=== PATIENT | male | born 1980 | race Hispanic/Latino ===

== ENCOUNTER 2020-01-23 15:39 | Emergency (ER) | payer MEDICARE, OTHER ==
[~2020-01-23] VITALS: Ht 172.7 cm; Wt 93.0 kg
[2020-01-23] MEDS ORDERED: SODIUM CHLORIDE 0.9% 1000ML 1,000 ML IV STA (15:58)
[2020-01-23] MEDS ORDERED: ONDANSETRON HCL INJ 2MG/ML 2ML 2 MG/ML VIAL IV STA (15:58)
[2020-01-23] MEDS ORDERED: LORAZEPAM INJ 2 MG/ML VIAL IV ONE (16:00)
--- OUTSIDE RECORDS SUMMARY | 2020-01-23 16:11 | XMS REPORT | Continuity of Care Document ---
Author Author [facility] t Organization [facility] Address [address] [place] [address] Phone Unavailable Care Team Providers Care Meat Dresser Name Role Phone Rosangela Garcia DO PCP Judy LAMB, Neil Quiñones Attphys Unavailable [place] DERMATOLOGY TECHNICIAN, Lisseth Armstrong Attphys Unavailable Rosangela Garcia DO Attphys Josiah WHITT, Marilee Eckert Attphys Jinny LAMB, Kerry Attphys Unavailable Marta LAMB, Kamran Gold Attphys Unavailcoretta Yee BELT BRANDER, G Tiagoiate Attphys Payers Payer Name Policy Type Policy Number Effective Date Expiration Date [facility] [id number].O. [address] [place] [address] xxxxxxxxx 2017 00:00:00 Win omalley Problems This patient has no known problems. Allergies, Adverse Reactions, Alerts Allergy Name Allergy Type Status Severity Reaction(s) Onset Date Inacti ve Date Treating Clinician Comments Source No Known Allergies DA Active U 2019-08-29 00:00:00 [facility] No Known Allergies DA Active U 2018-01-02 00:00:00 [facility] Family History Family Member Diagnosis Comments Start Date Stop Date Source Natural father Diabetes Win Munoz [facility] Social History Social Habit Start Date Stop Date Quantity Comments Source Sex Assigned At [facility] Exposure to SARS-CoV-2 (event) Yes [facility] Alcohol intake 2019-04-24 00:00:00 2019-04-24 00:00:00 Current non-drinker of alcohol (finding) [facility] History SDOH Food Worry 2018-10-05 00:00:00 2018-10-05 00:00:00 1 [facility] History SDOH Food Scarcity 2018-10-05 00:00:00 2018-10-05 00:00:00 1 [facility] Smoking Status Start Date Stop Date Source Light tobacco smoker 2019-04-24 00:00:00 [facility] Medications Ordered Medication Name Filled Medication Name Start Date Stop Da te Current Medication? Ordering Clinician Indication Dosage Frequency Signature (SIG) Comments Components Source divalproex (DEPAKOTE ER) 500 mg extended release tablet 2019-11-16 00:00:00 Yes Schizoaffective disorder, depressive type 1500mg QD Take 3 tablets by mouth daily. [facility] divalproex (DEPAKOTE ER) 500 mg extended release tablet 2019-08-24 00:00:00 2019-11-16 00:00:00 No Schizoaffective disorder, depressive t ype 1500mg QD Take 3 tablets by mouth daily. [facility] alth diphenhydrAMINE (BENADRYL) 50 mg capsule 2019-08 00:00:00 2019-11-16 00:00:00 No Schizoaffective disorder, depressive type 100mg Take 2 capsules by mouth nightly at bedtime as needed for Sleep. [facility] divalproex (DEPAKOTE ER) 500 mg extended release tablet 2019-06-29 00:00:00 2019-08-24 00:00:00 No Schizoaffective disorder, depressive t ype 1500mg QD Take 3 tablets by mouth daily. [facility] alth diphenhydrAMINE (BENADRYL) 50 mg capsule 2019-06 00:00:00 2019-08-24 00:00:00 No Schizoaffective disorder, depressive type 100mg Take 2 capsules by mouth nightly at bedtime as needed for Sleep. [facility] paliperidone (INVEGA SUSTENNA) 234 mg/1.5 mL Syrg 2019-05-04 00:00:00 2019-06-08 00:00:00 No Schizoaffective disorder, depressive t ype 234mg Inject 1.5 mL intramuscularly every 28 days for 3 doses. [facility] benzonatate (TESSALON PERLES) 100 mg capsule 2019-04-24 00:0 0:00 Yes Acute URI Take 1-2 capsules by mouth every 8 hours as nee ded for cough:. [facility] loratadine (CLARITIN) 10 mg tablet 2019-04-24 00:00:00 Yes Seasonal allergies 10mg QD Take 1 tablet by mouth daily. [facility] fluticasone propionate (FLONASE ALLERGY RELIEF) 50 mcg/actua tion nasal spray 2019-04-24 00:00:00 Yes Seasonal allergies 2{spray} Q D Use 2 Sprays in each nostril daily. [facility] amoxicillin (AMOXIL) 500 mg capsule 2019-04-24 00:00:0 0 2019-05-04 23:59:00 No Acute URI 500mg Q.5D Take 1 capsule by mouth 2 times daily for 10 days. [facility] divalproex (DEPAKOTE ER) 500 mg extended release tablet 2019-04-04 00:00:00 2019-06-29 00:00:00 No Schizoaffective disorder, depressive t ype 1500mg QD Take 3 tablets by mouth daily. [facility] alth diphenhydrAMINE (BENADRYL) 50 mg capsule 2019-03 00:00:00 2019-06-03 23:59:00 No Schizoaffective disorder, depressive type 100mg Take 2 capsules by mouth nightly at bedtime as needed for up to 60 days for Sleep. [facility] divalproex (DEPAKOTE ER) 500 mg extended release tablet 2019-02-07 00:00:00 2019-04-04 00:00:00 No Schizoaffective disorder, depressive t ype 1500mg QD Take 3 tablets by mouth daily. [facility] diphenhydrAMINE (BENADRYL) 50 mg capsule 2019-01 00:00:00 2019-04-04 00:00:00 No Schizoaffective disorder, depressive type 50mg Take 1 capsule by mouth nightly at bedtime as needed for up to 60 days for Sleep. [facility] divalproex (DEPAKOTE ER) 500 mg extended release tablet 2018-12-06 00:00:00 2019-02-07 00:00:00 No Schizoaffective disorder, depressive t ype 1500mg QD Take 3 tablets by mouth daily. [facility] alth diphenhydrAMINE (BENADRYL) 50 mg capsule 2018-11 00:00:00 2019-02-07 00:00:00 No Schizoaffective disorder, depressive type 50mg Take 1 capsule by mouth nightly at bedtime as needed for up to 90 days for Itching or Sleep. [facility] atorvastatin (LIPITOR) 20 mg tablet 2018-10-05 00:00:00 Yes Hypertriglyceridemia 20mg Take 1 tablet by mouth at bedtime nig htly. [facility] Immunizations Ordered Immunization Name Filled Immunization Name Date Status Comments Source Tdap (Tetanus Toxoid, Reduced Diphtheria Toxoid And Acellular Pertussis, Absorbed) 2018-10-05 00:00:00 Completed [facility] Vital Signs Vital Name Observation Time Observation Value Comments Source Systolic blood pressure 2019-11-16 13:32:00 114 mm[Hg] [facility] Diastolic blood pressure 2019-11-16 13:32:00 73 mm[Hg] [facility] Heart rate 2019-11-16 13:32:00 73 /min [facility] Body temperature 2019-11-16 13:32:00 36.61 Mimi [facility] Respiratory rate 2019-11-16 13:32:00 20 /min [facility] Body height 2019-11-16 13:32:00 172.7 cm [facility] Body weight 2019-11-16 13:32:00 85.276 kg [facility] BMI 2019-11-16 13:32:00 28.59 kg/m2 [facility] Oxygen saturation in Arterial blood by Pulse oximetry 11-15 13:32:00 100 /min [facility] Procedures Procedure Date / Time Performed Performing Clinician Sourc e CBC/DIFF 2019-11-16 12:46:00 Babar Rahman COMPREHENSIVE METABOLIC PANEL 2019-11-16 12:46:00 Babar Rahman [facility] HEMOGLOBIN A1C 2019-11-16 12:46:00 Babar Rahman LIPID PROFILE 2019-11-16 12:46:00 Babar Rahman VALPROIC ACID 2019-11-16 12:46:00 Babar Rahman URINE DRUG SCREEN 2019-11-16 12:46:00 Babar Rahman [facility] CBC 2019-11-16 12:46:00 Babar Rahman Plan of Care Planned Activity Planned Date Details Comments Source Future Scheduled Test 2020-03-13 00:00:00 IMM Influenza Seas onal Mar to August (>/= 19 yrs) [code = IMM Influenza Seasonal Mar to August (>/= 19 yrs)] [facility] Encounters Start Date/Time End Date/Time Encounter Type Admission Type [facility] Care Department Encounter ID Source 2019-08-24 00:00:00 2019-08-24 00:00:00 Outpatient [facility] [id number] [facility] 2019-07-27 00:00:00 2019-07-27 00:00:00 Outpatient [facility] [id number] [facility] 2019-06-29 09:44:02 2019-06-29 09:44:02 Outpatient [facility] [id number] [facility] 2019-06-01 14:07:19 2019-06-01 14:07:19 Outpatient [facility] [id number] [facility] 2019-05-04 11:21:27 2019-05-04 11:21:27 Outpatient [facility] [id number] [facility] 2019-04-24 10:08:15 2019-04-24 10:08:15 Outpatient [facility] [id number] [facility] 2019-04-04 15:03:58 2019-04-04 15:03:58 Outpatient [facility] [id number] [facility] 2019-03-07 00:00:00 2019-03-07 00:00:00 Outpatient [facility] [id number] [facility] 2019-02-07 14:47:09 2019-02-07 14:47:09 Outpatient [facility] [id number] [facility] 2019-02-07 00:00:00 2019-02-07 00:00:00 Outpatient [facility] [id number] [facility] 2019-01-10 09:27:33 2019-01-10 09:27:33 Outpatient [facility] [id number] [facility] 2018-12-13 08:26:19 2018-12-13 08:26:19 Outpatient [facility] [id number] [facility] 2018-12-06 08:49:56 2018-12-06 08:49:56 Outpatient [facility] [id number] [facility] 2018-11-15 10:10:39 2018-11-15 10:10:39 Outpatient [facility] [id number] [facility] 2018-11-10 00:00:00 2018-11-10 00:00:00 Outpatient [facility] [id number] [facility] 2018-10-13 08:17:37 2018-10-13 08:17:37 Outpatient [facility] [id number] [facility] 2018-10-05 11:11:38 2018-10-05 11:11:38 Outpatient [facility] [id number] [facility] 2018-10-05 10:00:58 2018-10-05 10:00:58 Outpatient [facility] [id number] [facility] 2018-09-15 09:03:16 2018-09-15 09:03:16 Outpatient [facility] [id number] [facility] 2018-09-06 08:41:20 2018-09-06 08:41:20 Outpatient [facility] [id number] [facility] 2018-08-14 12:36:21 2018-08-14 12:36:21 Outpatient [facility] [id number] [facility] 2018-08-14 00:00:00 2018-08-14 00:00:00 Outpatient [facility] [id number] [facility] 2018-08-09 00:00:00 2018-08-09 00:00:00 Outpatient [facility] [id number] [facility] 2018-07-12 15:10:32 2018-07-12 15:10:32 Outpatient [facility] [id number] [facility] 2018-07-12 12:45:33 2018-07-12 12:45:33 Outpatient [facility] [id number] [facility] Results Test Description Test Time Test Comments Results Result Comments Source Hemoglobin A1C 2019-11-16 15:21:00 Test Item Hemoglobin A1c (test code = 4548-4) 5.9 % 4.3-6.1 Estimated Average Glucose (test code = 49501616) 123 mg/dL 70-11 0 H Lab Interpretation (test code = 74589-7) Abnormal [facility] [id number] 14:20:00* Test Item Value Reference Range Interpretation Comments Cholesterol (test code = 2093-3) 185.0 mg/dL <=200.0 Triglyceride (test code = 85998513) 253 mg/dL <150 H HDL (test code = 2085-9) 31.0 mg/dL See Reference Range Narrative . LDL (test code = 84757-4) 103 mg/dL <100 H Op timal: < 100.0 mg/dLNear Optimal: 120-129 mg/dLBorderline: 130-159 mg/dLHigh: 160-189 mg/dLVery High: >=190 mg/dL Patient Fasting? (test code = 20469130) No DOLORES (test code = DOLORES) Patient is not fasting. For a triglyceride result greater than 440 mg/dL, consider re-testing when the patient is in a fasting state. Lab Interpretation (test code = 41415-2) Abnormal [facility] [id number] 14:20:00* Test Item Value Reference Range Interpretation Comments Valproic Acid (test code = 32905235) 33.0 ug/mL 50-100 L Lab Interpretation (test code = 86902-0) Abnormal [facility] [id number] 14:20:00* Test Item Value Reference Range Interpretation Comments Sodium (test code = 2951-2) 140 mmol/L 136-145 Potassium (test code = 2823-3) 4.4 mmol/L 3.5-5.1 Chloride (test code = 2075-0) 103 mmol/L 98-107 CO2 (test code = 43939251) 27 mmol/L 21-31 Glucose (test code = 42346152) 104 mg/dL 70-110 Calcium (test code = 95532727) 9.4 mg/dL 8.6-10.3 Urea Nitrogen (test code = 26263544) 7.0 mg/dL 7-25 Creatinine (test code = 01638997) 0.7 mg/dL 0.7-1.3 Alkaline Phosphatase (test code = 23317493) 82 U/L 34-104 ALT (test code = 21438754) 11 U/L 7-52 AST (test code = 71331091) 9 U/L 13-39 L Total Protein (test code = 2885-2) 7.3 g/dL 6-8.3 GFR, Estimated (test code = 98331934) >90 >=90 mL/min/1.73 m2 Albumin (test code = 43846-0) 4.4 g/dL 4.2-5.5 Anion Gap (test code = 26520616) 10 mmol/L 5-16 Lab Interpretation (test code = 47815-2) Abnormal [facility] S[facility], [id number] 14:12:00* Test Item Value Reference Range Interpretation Comments Opiate, Ur (test code = 17077-1) Negative Negative Calibrated Standard: Morphine Positive if urine level > or = 300 ng/dL Amphetamine (test code = 72487-6) Negative Negative Calibrated Standard: D- Methamphetamine Positive if urine level > or = 1000 ng/mL Barbiturate (test code = 96204-9) Negative Negative Calibrated Standard: Secobarbital Positive if urine level is > or = 200 ng/mL Benzodiazepine (test code = 34828-3) Negative Negative Calibrated Standard: Lormethazepam Positive if urine level is > or = 200 ng/mL Cocaine (test code = 23786-7) Negative Negative Calibrated Standard: Benzoylecgonine Positive if urine level > or = 300 ng/dL PCP (test code = 45849-5) Negative Negative C alibrated Standard: Phencyclidine Positive if urine level > or = 25 ng/dL Cannabinoid (test code = 68230-5) Positive Negative A Calibrated Standard: 11 nor-delta(9)-THC carboxylic acid Positive if urine level > or = 50 ng/mL Lab Interpretation (test code = 94609-6) Abnormal [facility]/[id number] 13:37:00* Test Item Value Reference Range Interpretation Comments WBC (test code = 6690-2) 8.6 K/uL 4.5-12 RBC (test code = 789-8) 5.02 4.60- 6.20 M/uL Hemoglobin (test code = 718-7) 14.6 g/dL 14-18 Hematocrit (test code = 4544-3) 46.7 % 40-54 MCV (test code = 787-2) 93.0 fL 82-92 H MCH (test code = 785-6) 29.1 pg 27-31 MCHC (test code = 786-4) 31.3 g/dL 32-36 L RDW (test code = 89454-3) 43.8 fL 35.1-43.9 Platelet (test code = 777-3) 253 K/uL 150-400 Mean Platelet Volume (test code = 99782-5) 10.1 fL 9.4-12.4 Percent NRBC (test code = 83544405) 0.0 % Neutrophil (test code = 770-8) 70.1 % 34-67.9 H Lymphs (test code = 736-9) 22.3 % 21.8-50 Monocytes (test code = 5905-5) 6.5 % 5.3-12 Eos (test code = 713-8) 0.4 % 0.8-5 L Basos (test code = 706-2) 0.2 % 0.2-1.2 Immature Granulocytes (test code = 02404515) 0.5 % 0-0.5 Neutrophils (Absolute) (test code = 03635122) 6.00 K/uL 1.78-5.3 6 H Lymphs (Absolute) (test code = 00381527) 1.91 K/uL 1.32-3.57 Monocytes(Absolute) (test code = 34119606) 0.56 K/uL 0.3-0.82 Eos (Absolute) (test code = 90954015) 0.03 K/uL 0.04-0.54 L Baso (Absolute) (test code = 72796738) 0.02 K/uL 0.01-0.08 Immature Grans (Abs) (test code = 77493578) 0.04 K/uL 0-0.03 H Absolute NRBC (test code = 89166589) 0.00 K/uL Lab Interpretation (test code = 86278-8) Abnormal [facility]- CT UP EXTREM W/CONT [id number] 13:04:00 Name: PAMELLA BARNARD [facility] : 1980 Age/S: 39 / M [address] Unit #: [id number] [place] [address] Phys: Mendez Rasheed DO Acct: [id number] Dis Date: Status: REG ER PHONE #: [phone] Exam Date: 08/29/2019 1243 FAX #: [phone] Reason: open wound/infection EXAMS: CPT CODE: [id number] CT UP EXTREM W/[place] [address] REASON FOR EXAM: open wound/infection EXAM ORDER DATE: 08/29/2019 12:14 PM Ordering: Mendez Rasheed DO Attending:Mendez Rasheed DO Location:[facility] PROCEDURE: - CT UP EXTREM W/CONT LT FINDINGS: CT images of the left elbow were obtained with IV contrast at 2.5mm. Reconstructed coronal and sagittal images were also provided. Dose modu lation, iterative reconstruction, and/or weight based adjustment of the MA /KV was utilized to reduce the radiation dose to as low as reasonably achi evable. The osseous structures are intact. Diffuse subcutaneous e cash in the posterior compartment of the left elbow consistent with cellul itis. No focal abscess or fluid collection. No abnormal enhancement. The osseous structures are intact. No evidence of joint effusion IMPRESSION: Subcutaneous cellulitis/edema most pronounced in the poste rior compartment. No evidence of osteomyelitis or abscess Electronic ally Signed by Migue Everett on 08/29/2019 at 4174 Report ed and signed by: Fabrice Everett M.D. CC: Mendez Rasheed DO Technologist:Rhys Vallejo RT(R),(MR),(CT) CTDI: DLP: Trnscb Date/Time: 08/29/2019 (6053) Zack.[email or web address] Orig Print D/T: S: 08/29/2019 (3043) PAGE 1 Signed Report - XR ELBOW 3 + V [id number] 09:46:00 FAX: Mendez Rasheed DO [place]: B St: REG Name: PAMELLA RUTH [facility] : [birth year] Age/S: 39/M [address] [facility] Unit #: [id number] Loc: [place] [address] Phys: Mendez Rasheed DO Acct: [id number] Dis Date: Status: REG ER PHONE #: [phone] Exam Date: 08/29/2019 09 FAX #: [phone] Reason: ELBOW PAIN EXAMS: CPT CODE: [id number] XR ELBOW 3 + [place] [address] REASON FOR EXAM: ELBOW PAIN EXAM ORDER DATE: 08/29/2019 8:47 AM Ordering: Mendez Rasheed DO Attending:Mendez Rasheed DO Location:[facility] PROCEDURE: - XR ELBOW 3 + V LT FINDINGS: 2 views of the left elbow were obtained. The osseous structures are unremarkable in size and shape. The joint spaces are maintained. No evidence of fracture. No evidence of joint effusion IMPRESSION: Unremarkable left el bow at 0946 Reported and signed by: Migue Joyner C: Mendez Rasheed DO Technologist: RT WILFREDO(R) Trnscrd Date/Time/By: 08/29/2019 (67) : By: GayL Orig Print D/T: S: 08/29/2019 (4380) PAGE 1 Signed Report - XR ELBOW 3 + V [id number] 09:46:00 FAX: Mendez Rasheed DO Munith: B St: REG Name: PAMELLA RUTH [facility] : [birth year] Age/S: 39/M [address] [facility] Unit #: [id number] Loc: [place] [address] Phys: Mendez Rasheed DO Acct: [id number] Dis Date: Status: REG ER PHONE #: [phone] Exam Date: 08/29/2019937 FAX #: [phone] Reason: ELBOW PAIN EXAMS: CPT CODE: [id number] XR ELBOW 3 + [place] [address] REASON FOR EXAM: ELBOW PAIN EXAM ORDER DATE: 08/29/2019 8:47 AM Ordering: Mendez Rasheed DO Attending:Mendez Rasheed DO Location:[facility] PROCEDURE: - XR ELBOW 3 + V LT FINDINGS: 2 views of the left elbow were obtained. The osseous structures are unremarkable in size and shape. The joint spaces are maintained. No evidence of fracture. No evidence of joint effusion IMPRESSION: Unremarkable left el bow at 0946 Reported and signed by: Migue Joyner C: Mendez Rasheed DO Technologist: RT WILFREDO(Lamberto) Trnscrd Date/Time/By: 08/29/2019 (15) : By: GayL Orig Print D/T: S: 08/29/2019 (3344) PAGE 1 Signed Report - XR CHEST 1 [id number] 09:37:00 FAX: Mendez Rasheed DO Munith: B St: REG Name: PAMELLA RUTH [facility] : [birth year] Age/S: 39/M [address] [facility] Unit #: [id number] Loc: [place] [address] Phys: Mendez Rasheed DO Acct: [id number] Dis Date: Status: REG ER PHONE #: [phone] Exam Date: 08/29/2019937 FAX #: [phone] Reason: CHEST PAIN EXAMS: CPT CODE: [id number] XR CHEST 1 V 91813 REASON FOR EXAM: CHEST PAIN EXAM ORDER DATE: 08/29/2019 8:47 AM Ordering: Mendez Rasheed DO Attending:Mendez Rasheed DO Location:[facility] OCEDURE: - XR CHEST 1 V COMPARISON: FINDINGS: Port able AP frontal view of the chest obtained at 9:22 AM shows clear lungs wi thout evidence of consolidation. There is no evidence of effusion. The hea rt size is within normal limits. Pulmonary vasculatures are unremarkable. IMPRESSION: No active disease. at 0937 Reported and sig joelle by: Fabrice Everett M.D. CC: Mendez Rasheed DO Technologist: BETI BARRERA, RT(R) Trnscrd Date/Time/By: 08/29/2019 (09) : By: GayL Orig Print D/T: S: 08/29/2019 (7872) PAGE 1 Signed Report LACTIC [id number] 09:26:00 * Test Item Value Reference Range Interpretation Comments LACTIC ACID (test code = LACT) 1.6 mmol/L 0.4-1.9 N BASIC METABOLIC [id number] 09:26:00* Test Item Value Reference Range Interpretation Comments SODIUM (test code = NA) 140 mmol/L 136-145 N POTASSIUM (test code = K) 3.7 mmol/L 3.5-5.1 N CHLORIDE (test code = CL) 106.0 mmol/L 98-107 N CARBON DIOXIDE (test code = CO2) 26.0 mmol/L 21-32 N ANION GAP (test code = GAP) 11.7 10-20 N GLUCOSE (test code = GLU) 108 mg/dL 74-106 H BLOOD UREA NITROGEN (test code = BUN) 9 mg/dL 7-18 N GLOMERULAR FILTRATION RATE (test code = GFR) > 60 mL/min >=60 Estimated GFR by using Modified MDRD formula.Chronic kidney disease is defined as either kidney damageor GFR <60 mL/min/1.73 m2 for >3 months. CREATININE (test code = CREAT) 0.80 mg/dL 0.7-1.3 N BUN/CREATININE RATIO (test code = BUN/CREA) 11.3 10-20 N CALCIUM (test code = CA) 8.5 mg/dL 8.5-10.1 N HEPATIC FUNCTION [id number] 09:26:00* Test Item Value Reference Range Interpretation Comments TOTAL PROTEIN (test code = PROT) 7.7 gram/dL 6.4-8.2 N ALBUMIN (test code = ALB) 3.2 g/dL 3.4-5.0 L GLOBULIN (test code = GLOB) 4.5 gram/dL 2.7-4.2 H ALBUMIN/GLOBULIN RATIO (test code = A/G) 0.7 0.75-1.50 L BILIRUBIN TOTAL (test code = BILT) 0.30 mg/dL 0.0-1.0 N BILIRUBIN DIRECT (test code = BILD) 0.07 mg/dL 0.0-0.20 N SGOT/AST (test code = AST) 9 IUnit/L 15-37 L SGPT/ALT (test code = ALT) 21 IUnit/L 12-78 N ALKALINE PHOSPHATASE TOTAL (test code = ALKP) 116 IUnit/L 45-117 N Note change in reference range due to change in reagent. [id number] 09:26:00* Test Item Value Reference Range Interpretation Comments TROPONIN-I (test code = TROPI) <0.015 ng/mL 0-0.045 N [id number] 09:26:00* Test Item Value Reference Range Interpretation Comments ALCOHOL (test code = ALC) < 3 mg/dL 0.0-3.0 N -- INTERPRETIVE DATA NOTE: POSITIVE SCREENING RESULTS SHOULD BE CONSIDERED PRESUMPTIVE.WHEN COLLECTED FOR MEDICAL PURPOSES ONLY. SPECIMEN WILL NOTBE COLLECTED BY CHAIN OF CUSTODY.IF A CONFIRMATION OF POSITIVE RESULTS IS DESIRED, ACONFIRMATION TEST MUST BE REQUESTED BY THE PHYSICIAN AT ANADDITIONAL CHARGE TO THE PATIENT. - CT MAXIFAC W/O [id number] 09:25:00 Name: SHANNON DAILEYPAMELLA [facility] : 1980 Age/S: 39 / M [address] Unit #: [id number] Loc: [place] [address] Phys: Mendez Rasheed DO Acct: [id number] Dis Date: Status: REG ER PHONE #: [phone] Exam Date: 08/29/2019903 FAX #: [phone] Reason: blunt trauma EXAMS: CPT CODE: [id number] [place] MAXIFAC [place] [address] REASON FOR EXAM: blunt trauma EXAM ORDER DATE: 08/29/2019 8:47 AM Ordering: Mendez Rasheed DO Attending:Mendez Rasheed DO Location:[facility] PROCEDURE: - CT MAXIFAC W/O CNT FINDINGS: CT images of the face were obtained without IV contrast at 2.5 mm thickness. Dose modulation, iterative reconstruction, and/or weight based adjustment of the MA/KV was utilized to reduce the radiation dose to as low as reasonably achievable. The globes are intact. The orbital jernigan are unremarkable without evidence of orbital blowout fracture. The mandibles are within normal limits. The visualized paranasal sinuses are well aerated IMPRESSION: Minimally displaced nasal bone fracture at 0925 Reported and signed by: Fabrice Everett M.D. CC: Mendez Rasheed DO Technologist:Rhys Vallejo RT(R),(MR),(CT); CTDI: DLP: Trnscb Date/Time: 08/29/2019 (924) [email or web address] Orig Print D/T: S: 08/29/2019 (36) PAGE 1 Signed Report - CT ABD PELVIS [id number] 09:24:00 Name: PAMELLA BARNARD [facility] : 1980 Age/S: 39 / M [address] [facility] Unit #: [id number] [place] [address] Phys: Mendez Rasheed DO Acct: [id number] Dis Date: Status: REG ER PHONE #: [phone] Exam Date: 08/29/2019903 FAX #: [phone] Reason: trauma left flank pain EXAMS: CPT CODE: [id number] CT ABD PELVIS W/CONT 48695 REASON FOR EXAM: trauma left flank pain EXAM ORDER DATE: 08/29/2019 8:47 AM Ordering: Mendez Rasheed DO Attending:Mendez Rasheed DO Location:[facility] PROCEDURE: - CT ABD PELVIS W/CONT COMPARISON: FINDINGS: CT images of the abdomen and pelvis were obtained with IV and without oral contrast at 5mm. Dose modulation, iterative james nstruction, and/or weight based adjustment of the MA/KV was utilized to re duce the radiation dose as low as reasonably achievable. Intraveno us contrast: 100cc of Omnipaque 370. The liver, spleen, pancreas are grossly within normal limits. The gallbladder is unremarkable by CT The kidneys are within normal limits. The urinary bladder is unremarkable. The colon, small bowel, and stomach are within no rmal limits without evidence of obstruction. The appendix is unremarkable . No evidence of free air or free fluid. IMPRESSIO N: No acute findings in the abdomen at 0924 Reported and signed by: Fabrice Everett M.D. CC: Mendez Rasheed DO Tech nologist:Rhys Vallejo RT(R),(MR),(CT); CTDI: DLP: Trnscb Date/Ti me: 08/29/2019 (923) [email or web address].SDR.VTL Orig Print D/T: S: 2019 (4897) PAGE 1 Signed Report - CT C-SPINE W/O [id number] 09:22:00 Name: PAMELLA BARNARD [facility] : 1980 Age/S: 39 / M [address] [facility] Unit #: [id number] Loc: [place] [address] Phys: Mendez Rasheed DO Acct: [id number] Dis Date: Status: REG ER PHONE #: [phone] Exam Date: 08/29/2019 0904 FAX #: [phone] Reason: trauma EXAMS: CPT CODE: [id number] CT C-SPINE W/O CONTRAST [id number] REASON FOR EXAM: trauma EXAM ORDER DATE: 08/29/2019 8:47 AM Ordering: Mendez Rasheed DO Attending:Mendez Rasheed DO Location:[facility] PROCEDURE: - CT C-SPINE W/O CONTRAST FINDINGS: CT images of the cervical spine were obtained without IV contrast at 2.5mm. Recon structed coronal and sagittal images were also provided. Dose modulation, iterative reconstruction, and/or weight based adjustment of the MA/KV was utilized to reduce the radiation dose to as low as reasonably achievable. The osseous structures are intact. The central canal is patent. The disc spaces are maintained. IMPR ESSION: Unremarkable cervical spine at 0922 Reported and signed by: Fabrice Everett M.D. CC: Mendez Rasheed DO Technologist:Rhys Vallejo RT(R),(MR),(CT); CTDI: DLP: Trnscb Date/Time: 08/29/2019 (921) [email or web address] Orig Print D/T: S: 08/29/2019 (924) PAGE 1 Signed Report BASIC METABOLIC [id number] 09:17:00* Test Item Value Reference Range Interpretation Comments SODIUM (test code = NA) 140 mmol/L 136-145 N POTASSIUM (test code = K) 3.7 mmol/L 3.5-5.1 N CHLORIDE (test code = CL) 106.0 mmol/L 98-107 N CARBON DIOXIDE (test code = CO2) mmol/L 21-32 ANION GAP (test code = GAP) 10-20 GLUCOSE (test code = GLU) mg/dL 74-106 BLOOD UREA NITROGEN (test code = BUN) mg/dL 7-18 GLOMERULAR FILTRATION RATE (test code = GFR) mL/min >=60 CREATININE (test code = CREAT) mg/dL 0.7-1.3 BUN/CREATININE RATIO (test code = BUN/CREA) 10-20 CALCIUM (test code = CA) mg/dL 8.5-10.1 HEPATIC FUNCTION [id number] 09:17:00* Test Item Value Reference Range Interpretation Comments TOTAL PROTEIN (test code = PROT) gram/dL 6.4-8.2 ALBUMIN (test code = ALB) g/dL 3.4-5.0 GLOBULIN (test code = GLOB) gram/dL 2.7-4.2 ALBUMIN/GLOBULIN RATIO (test code = A/G) 0.75-1.50 BILIRUBIN TOTAL (test code = BILT) mg/dL 0.0-1.0 BILIRUBIN DIRECT (test code = BILD) mg/dL 0.0-0.20 SGOT/AST (test code = AST) IUnit/L 15-37 SGPT/ALT (test code = ALT) IUnit/L 12-78 ALKALINE PHOSPHATASE TOTAL (test code = ALKP) IUnit/L 45-117 [id number] 09:17:00* Test Item Value Reference Range Interpretation Comments TROPONIN-I (test code = TROPI) ng/mL 0-0.045 [id number] 09:17:00* Test Item Value Reference Range Interpretation Comments ALCOHOL (test code = ALC) mg/dL 0-3 - CT HEAD/BRAIN W/O [id number] 09:14:00 Name: PAMELLA BARNARD [facility] : 1980 Age/S: 39 / M [address] Unit #: [id number] Loc: [place] [address] Phys: Mendez Rasheed DO Acct: [id number] Dis Date: Status: REG ER PHONE #: [phone] Exam Date: 08/29/2019 0904 FAX #: [phone] Reason: HEADACHE EXAMS: CPT CODE: [id number] CT HEAD/BRAIN W/O CONT [id number] REASON FOR EXAM: HEADACHE EXAM ORDER DATE: 08/29/2019 8:47 AM Ordering: Mendez Rasheed DO Attending:Mendez Rasheed DO Location:[facility] PROCEDURE: - CT HEAD/BRAIN W/O CONT COMPARISON: FINDINGS: CT images of the brain were obtained without IV contrast. Dose modulation, iterative reconstruction, and/or weight based adjustment of the MA/KV was utilized to reduce the radiation dose to as low as reasonably achievable. The brain parenchyma is within normal limits. The morris-white matter delineation is unremarkable. The ventricles, cisterns, and sulci are unremarkable. There is no evidence of hemorrhage, mass, mass effect. There is no evidence of acute or old infarct. The calvarium is intact. IMPRESSION: Unremarkable brain. Minimal deformity of the nasal bone suggestive of fracture. at 0914 Reported and signed by: Fabrice Everett M.D. CC: Mendez Rasheed DO Technologist:Rhys Vallejo RT(R),(MR),(CT); CTDI: DLP: Trnscb Date/Time: 08/29/2019 (913) [email or web address] Orig Print D/T: S: 08/29/2019 (4755) PAGE 1 Signed Report CBC W/O [id number] 09:10:00* Test Item Value Reference Range Interpretation Comments WHITE BLOOD CELL (test code = WBC) 12.6 K/mm3 4.5-12.5 H RED BLOOD CELL (test code = RBC) 4.78 mill/mm3 4.0-5.8 N HEMOGLOBIN (test code = HGB) 14.1 gram/dL 13.0-17.5 N HEMATOCRIT (test code = HCT) 41.8 % 42.0-52.0 L MEAN CELL VOLUME (test code = MCV) 87.4 fL 80-98 N MEAN CELL HGB (test code = MCH) 29.5 picogram 27.0-33.0 N MEAN CELL HGB CONCETRATION (test code = MCHC) 33.7 gram/dL 33.0-36. 0 N RED CELL DISTRIBUTION WIDTH (test code = RDW) 12.6 % 11.6-16. 2 N PLATELET COUNT (test code = PLT) 214 K/mm3 150-450 N MEAN PLATELET VOLUME (test code = MPV) 10.4 fL 6.7-11.0 N CBC W/O [id number] 09:09:00* Test Item Value Reference Range Interpretation Comments WHITE BLOOD CELL (test code = WBC) K/mm3 4.5-12.5 RED BLOOD CELL (test code = RBC) mill/mm3 4.0-5.8 HEMOGLOBIN (test code = HGB) 14.1 gram/dL 13.0-17.5 N HEMATOCRIT (test code = HCT) % 42.0-52.0 MEAN CELL VOLUME (test code = MCV) fL 80-98 MEAN CELL HGB (test code = MCH) picogram 27.0-33.0 MEAN CELL HGB CONCETRATION (test code = MCHC) gram/dL 33.0-36. 0 RED CELL DISTRIBUTION WIDTH (test code = RDW) % 11.6-16. 2 PLATELET COUNT (test code = PLT) K/mm3 150-450 MEAN PLATELET VOLUME (test code = MPV) fL 6.7-11.0
--- OUTSIDE RECORDS SUMMARY | 2020-01-23 16:11 | XMS REPORT | Clinical Summary ---
Author Author [facility] Organization [facility] Address Unknown Phone Unavailable Care Team Providers Care Licensing Engineer Name Role Phone Rosangela Garcia PCP Allergies No Known Allergies Medications End Date Status Medication Sig Dispensed Refills Start Date Active atorvastatin (LIPITOR) 20 Take 1 tablet 90 tablet 1 10/05/201 mg tabletIndications: by mouth at 9 Hypertriglyceridemia bedtime nightly. Active benzonatate (TESSALON Take 1-2 60 capsule 0 04/13 PERLES) 100 mg capsules by 9 capsuleIndications: Acute mouth every 8 URI hours as needed for cough:. Active loratadine (CLARITIN) 10 Take 1 tablet 30 tablet 0 201 mg tabletIndications: by mouth 9 Acute URI, Nasal daily. congestion with rhinorrhea, Seasonal allergies Active fluticasone propionate Use 2 Sprays 16 g 0 (FLONASE ALLERGY RELIEF) in each 9 50 mcg/actuation nasal nostril sprayIndications: Acute daily. URI, Nasal congestion with rhinorrhea, Seasonal allergies Active divalproex (DEPAKOTE ER) Take 3 90 tablet 2 0 500 mg extended release tablets by 0 tabletIndications: mouth daily. Schizoaffective disorder, depressive type 02/07/2019 Discontinued (Reorder) divalproex (DEPAKOTE ER) Take 3 90 tablet 3 0 500 mg extended release tablets by 9 tabletIndications: mouth daily. Schizoaffective disorder, depressive type 02/07/2019 Discontinued (Reorder) diphenhydrAMINE Take 1 30 capsule 3 (BENADRYL) 50 mg capsule by 9 capsuleIndications: mouth nightly Schizoaffective disorder, at bedtime as depressive type needed for up to 90 days for Itching or Sleep. 04/04/2019 Discontinued (Reorder) divalproex (DEPAKOTE ER) Take 3 90 tablet 1 0 500 mg extended release tablets by 9 tabletIndications: mouth daily. Schizoaffective disorder, depressive type 04/04/2019 Discontinued (Reorder) diphenhydrAMINE Take 1 30 capsule 1 (BENADRYL) 50 mg capsule by 9 capsuleIndications: mouth nightly Schizoaffective disorder, at bedtime as depressive type needed for up to 60 days for Sleep. 06/29/2019 Discontinued (Reorder) divalproex (DEPAKOTE ER) Take 3 90 tablet 1 1 500 mg extended release tablets by 9 tabletIndications: mouth daily. Schizoaffective disorder, depressive type 06/03/2019 diphenhydrAMINE Take 2 60 capsule 1 (BENADRYL) 50 mg capsules by 9 capsuleIndications: mouth nightly Schizoaffective disorder, at bedtime as depressive type needed for up to 60 days for Sleep. 05/04/2019 amoxicillin (AMOXIL) 500 Take 1 20 capsule 0 1 mg capsuleIndications: capsule by 9 Acute URI mouth 2 times daily for 10 days. 06/08/2019 Discontinued (Other) paliperidone (INVEGA Inject 1.5 mL 1.5 mL 0 SUSTENNA) 234 mg/1.5 mL intramuscular 9 SyrgIndications: ly every 28 Schizoaffective disorder, days for 3 depressive type doses. 08/24/2019 Discontinued (Reorder) divalproex (DEPAKOTE ER) Take 3 90 tablet 1 0 500 mg extended release tablets by 0 tabletIndications: mouth daily. Schizoaffective disorder, depressive type 08/24/2019 Discontinued (Reorder) diphenhydrAMINE Take 2 60 capsule 0 (BENADRYL) 50 mg capsules by 0 capsuleIndications: mouth nightly Schizoaffective disorder, at bedtime as depressive type needed for Sleep. 11/16/2019 Discontinued (Reorder) divalproex (DEPAKOTE ER) Take 3 90 tablet 2 0 500 mg extended release tablets by 0 tabletIndications: mouth daily. Schizoaffective disorder, depressive type 11/16/2019 Discontinued (Other) diphenhydrAMINE Take 2 60 capsule 2 (BENADRYL) 50 mg capsules by 0 capsuleIndications: mouth nightly Schizoaffective disorder, at bedtime as depressive type needed for Sleep. Active Problems No known active problems Encounters Care Team Description Date Type Specialty Nuria Kim RN Psychiatric problem (Primary Dx) 01/11/2020 Nurse Only Psychiatry Patti Okeefe LVN Psychiatric problem (Primary Dx) 12/12/2019 Nurse Only Psychiatry Babar Rahman MD Cannabis abuse (Primary Dx); Schizoaffective disorder, depressive type; Alcohol abuse; Methamphetamine abuse 11/16/2019 Office Visit Psychiatry Rosangela Garcia DO Schizoaffective disorder, depressive typ e 11/16/2019 Hospital Lab Encounter Nuria Kim RN Psychiatric problem (Primary Dx) 10/19/2019 Nurse Only Psychiatry Patti Okeefe LVN Psychiatric problem (Primary Dx) 09/21/2019 Nurse Only Psychiatry Babar Rahman MD Schizoaffective disorder, depressive typ e 08/24/2019 Office Visit Psychiatry Kerry Stearns RN Psychiatric complaint (Primary Dx) 07/27/2019 Nurse Only Psychiatry Babar Rahman MD Schizoaffective disorder, depressive typ e (Primary Dx); Cannabis abuse 06/29/2019 Office Visit Psychiatry Patti Okeefe LVN Schizoaffective disorder, depressive typ e 06/01/2019 Nurse Only Psychiatry Babar Rahman MD Schizoaffective disorder, depressive typ e 05/24/2019 Refill Psychiatry Babar Rahman MD Schizoaffective disorder, depressive typ e 05/18/2019 Refill Psychiatry Alla Lozano RN Psychiatric problem (Primary Dx) 05/04/2019 Nurse Only Psychiatry Babar Rahman MD Schizoaffective disorder, depressive typ e (Primary Dx) 05/04/2019 Refill Psychiatry Astrid Yee, JILL Acute URI (Primary Dx); Nasal congestion with rhinorrhea; Seasonal allergies 04/24/2019 Same Day Family [facility] Rahman, Babar A, MD Schizoaffective disorder, depressive typ e 04/04/2019 Office Visit Psychiatry Babar Rahman MD Schizoaffective disorder, depressive typ e 02/07/2019 Office Visit Psychiatry after 01/22/2019 Immunizations Name Administration Dates Next Due Tdap (Tetanus Toxoid, 10/05/2018 Reduced Diphtheria Toxoid And Acellular Pertussis, Absorbed) Family History Medical History Relation Name Comments Diabetes Father Relation Name Status Comments Father Social History Date Tobacco Use Types Packs/Day Years Used Light Tobacco Smoker Smokeless Tobacco: Never Used Drinks/Week oz/Week Comments Alcohol Use No Food Insecurity Answer Date Recorded Within the past 12 months, you worried that your Never kylie e 10/05/2018 food would run out before you got money to buy more. Within the past 12 months, the food you bought Never true 10/05/2018 just didn't last and you didn't have mo shannon to get more. Sex Assigned at Date Recorded Not on file Industry Job Start Date Occupation Not on file Not on file Not on file Travel End Travel History Travel Start No recent travel history available. Date Recorded COVID-19 Exposure Response 01/17/2020 8:51 AM CDT In the last month, have you been in contact with Yes someone who was confirmed or suspected to have Coronavirus / COVID-19? Last Filed Vital Signs Reading Time Taken Comments Vital Sign 114/73 11/16/2019 1:32 PM CDT Blood Pressure 73 11/16/2019 1:32 PM CDT Pulse 36.6 C (97.9 F) 11/16/2019 1:32 PM CDT Temperature 20 11/16/2019 1:32 PM CDT Respiratory Rate 100% 11/16/2019 1:32 PM CDT Oxygen Saturation - - Inhaled Oxygen Concentration 85.3 kg (188 lb) 11/16/2019 1:32 PM CDT Weight 172.7 cm (5' 8") 11/16/2019 1:32 PM CDT Height 28.59 11/16/2019 1:32 PM CDT Body Mass Index Plan of Treatment Care Team Description Date Type Specialty Rosangela Garcia DO [address] [facility] [place] [address] [phone] 1st call 01/22#[id number] 01/28/2020 Telemedicine Family Practice Babar Rahman MD [address] [place], [place] [id number] injection 02/08/2020 Office Visit Psychiatry Health Maintenance Due Date Last Done Comments IMM Influenza Seasonal 03/13/2020 Oct to August (>/= 19 yrs) Procedures Comments Procedure Name Priority Date/Time Associated Diag nosis CBC Routine 11/16/2019 Schizoaffective disorder, 12:46 PM CDT depressive type URINE DRUG SCREEN Routine 11/16/2019 Schizoaffect ness disorder, 12:46 PM CDT depressive type VALPROIC ACID Routine 11/16/2019 Schizoaffective disorder, 12:46 PM CDT depressive type LIPID PROFILE Routine 11/16/2019 Schizoaffective disorder, 12:46 PM CDT depressive type HEMOGLOBIN A1C Routine 11/16/2019 Schizoaffective disorder, 12:46 PM CDT depressive type COMPREHENSIVE METABOLIC Routine 11/16/2019 Schizo affective disorder, PANEL 12:46 PM CDT depressive type CBC/DIFF Routine 11/16/2019 Schizoaffective disorder, 12:46 PM CDT depressive type after 01/22/2019 Results * CBC/Diff (11/16/2019 12:46 PM CDT) WBC 8.6 4.5 - 12.0 K/uL [facility] RBC 5.02 4.60 - 6.20 M/uL [facility] Hemoglobin 14.6 14.0 - 18.0 g/dL [facility] Hematocrit 46.7 40.0 - 54.0 % [facility] MCV 93.0 (H) 82.0 - 92.0 fL [facility] MCH 29.1 27.0 - 31.0 pg [facility] MCHC 31.3 (L) 32.0 - 36.0 g/dL [facility] RDW 43.8 35.1 - 43.9 fL [facility] Platelet 253 150 - 400 K/uL [facility] Mean Platelet 10.1 9.4 - 12.4 fL [facility] Volume [facility] Percent NRBC 0.0 % [facility] Neutrophil 70.1 (H) 34.0 - 67.9 % [facility] Lymphs 22.3 21.8 - 50.0 % [facility] Monocytes 6.5 5.3 - 12.0 % [facility] Eos 0.4 (L) 0.8 - 5.0 % [facility] Basos 0.2 0.2 - 1.2 % [facility] Immature 0.5 0.0 - 0.5 % [facility] Granulocytes [facility] Neutrophils 6.00 (H) 1.78 - 5.36 K/uL [facility] (Absolute) [facility] Lymphs 1.91 1.32 - 3.57 K/uL [facility] (Absolute) [facility] Monocytes(Absol 0.56 0.30 - 0.82 K/uL [facility] thang) LABORATORY Eos (Absolute) 0.03 (L) 0.04 - 0.54 K/uL [facility] Baso (Absolute) 0.02 0.01 - 0.08 K/uL [facility] Immature Grans 0.04 (H) 0.00 - 0.03 K/uL [facility] (Abs) [facility] Absolute NRBC 0.00 K/uL [facility] Specimen Blood Performing Organization Address [facility] Ph one Number [facility] [address] [place] [address] * Hemoglobin A1C (11/16/2019 12:46 PM CDT) Hemoglobin A1c 5.9 4.3 - 6.1 % [facility] Estimated 123 (H) 70 - 110 mg/dL [facility] Average Glucose [facility] Specimen Blood Performing Organization Address [facility] Ph one Number [facility] [address] [place] [address] * Comprehensive Metabolic Panel (11/16/2019 12:46 PM CDT) Sodium 140 136 - 145 mmol/L [facility] Potassium 4.4 3.5 - 5.1 mmol/L [facility] Chloride 103 98 - 107 mmol/L [facility] CO2 27 21 - 31 mmol/L [facility] Glucose 104 70 - 110 mg/dL [facility] Calcium 9.4 8.6 - 10.3 mg/dL [facility] Urea Nitrogen 7.0 7.0 - 25.0 mg/dL [facility] Creatinine 0.7 0.7 - 1.3 mg/dL [facility] Alkaline 82 34 - 104 U/L [facility] Phosphatase [facility] ALT 11 7 - 52 U/L [facility] AST 9 (L) 13 - 39 U/L [facility] Bilirubin, 0.3 0.2 - 1.2 mg/dL [facility] Total [facility] Total Protein 7.3 6.0 - 8.3 g/dL [facility] GFR, Estimated >90 >=90 mL/min/1.73 m2 [facility] Albumin 4.4 4.2 - 5.5 g/dL [facility] Anion Gap 10 5 - 16 mmol/L [facility] Specimen Blood Performing Organization Address [facility] Ph one Number [facility] [address] [place] [address] [phone] * Valproic Acid (11/16/2019 12:46 PM CDT) Valproic Acid 33.0 (L) 50.0 - 100.0 ug/mL [facility] Specimen Blood Performing Organization Address [facility] Ph one Number [facility] [address] [place] [address] [phone] * DRUG SCREEN, URINE (11/16/2019 12:46 PM CDT) Opiate, Ur Negative Negative [facility] Comment: [facility] Calibrated Standard: Morphine Positive if urine level > or = 300 ng/dL Amphetamine Negative Negative [facility] Comment: [facility] Calibrated Standard: D-Methamphetamine Positive if urine level > or = 1000 ng/mL Barbiturate Negative Negative [facility] Comment: [facility] Calibrated Standard: Secobarbital Positive if urine level is > or = 200 ng/mL Benzodiazepine Negative Negative [facility] Comment: [facility] Calibrated Standard: Lormethazepam Positive if urine level is > or = 200 ng/mL Cocaine Negative Negative [facility] Comment: [facility] Calibrated Standard: Benzoylecgonine Positive if urine level > or = 300 ng/dL PCP Negative Negative [facility] Comment: [facility] Calibrated Standard: Phencyclidine Positive if urine level > or = 25 ng/dL Cannabinoid Positive (A) Negative [facility] Comment: [facility] Calibrated Standard: 11 nor-delta(9)-THC carboxylic acid Positive if urine level > or = 50 ng/mL Specimen Urine - Voided, urine Performing Organization Address [facility] Ph one Number [facility] [address] [place] [address] * Lipid Profile (11/16/2019 12:46 PM CDT) Cholesterol 185.0 <=200.0 mg/dL [facility] Triglyceride 253 (H) <150 mg/dL [facility] HDL 31.0 See Reference Range [facility] Narrative. mg/dL LAB[facility]ATORY LDL 103 (H) <100 mg/dL [facility] Comment: [facility] Optimal: < 100.0 mg/dL Near Optimal: 120-129 mg/dL Borderline: 130-159 mg/dL High: 160-189 mg/dL Very High: >=190 mg/dL Patient No [facility] Fasting? LABORAT[facility] Specimen Blood Narrative Performed At Patient is not fasting. For a triglyceride result gre ater than 440 mg/dL, [facility] consider re-testing when the patient is in a fasting state. Performing Organization Address [facility] one Number [facility] [address] [place] [address] after 01/22/2019 Insurance Type Payer Benefit Subscriber ID Effective Phone Address Plan / Dates Group [facility] xxxxxxxxx 2017-P [phone] [address] [facility] resent [id number] [facility] [id number]
--- NOTE | 2020-01-23 16:20 | Emergency Department Note ---
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 Arrival Mode: [facility] Treatment FLEET ADMINISTRATOR: IV Additional Treatment FLEET ADMINISTRATOR: SEE EMS REPORT [facility] Hand Required: No Onset (how long ago): minute(s) Radiation: Reports non-radiation Severity: mild Onset quality: gradual Timing of current episode: intermittent Progression: waxing and waning Chronicity: recurrent Context: Denies recent illness Relieving factors: none Exacerbating factors: none Associated symptoms: Reports denies other symptoms Treatments prior to arrival: none Past Medical/Family History Physician Review I have reviewed the patient's past medical and family history. Any updates have been documented here. Past Medical History Recent Fever: No Clinical Suspicion of Infectio: No New/Unexplained Change in Ment: No Past Medical History: Anxiety, Depression Social History Smoking Cessation: Current every day smoker Counseling Performed: Yes Alcohol Use: Social Any Illegal Drug Use: Yes TB Exposure/Symptoms: No Physically hurt or threatened: No Family History Family history of heart diseas: No Other Any Pre-Existing Lines (PICC,: No Review of Systems Review of Systems Constitutional: Reports no symptoms EENTM: Reports no symptoms Cardiovascular: Reports no symptoms Respiratory: Reports no symptoms Gastrointestinal: Reports no symptoms Genitourinary: Reports no symptoms Musculoskeletal: Reports no symptoms Integumentary: Reports no symptoms Neurological: Reports as per HPI Psychological: Reports no symptoms, Reports other (no SI/HI) Endocrine: Reports no symptoms Hematological/Lymphatic: Reports no symptoms Physical Exam Related Data Triage Vital Signs Vital Signs Date Time Temp Pulse Resp B/P (MAP) Pulse Ox O2 Delivery O2 Flow Rate FiO2 01/23/20 15:48 98.9 87 19 103/64 98 Room Air Vital signs reviewed: Yes Physical Exam CONSTITUTIONAL Constitutional: Present well-developed, Present well-nourished HENT HENT: Present normocephalic, Present atraumatic, Present oropharynx clear/moist, Present nose normal HENT L/R: Present left ext ear normal, Present right ext ear normal EYES Eyes: Reports PERRL, Reports conjunctivae normal NECK Neck: Present ROM normal PULMONARY Pulmonary: Present effort normal, Present breath sounds normal CARDIOVASCULAR Cardiovascular: Present regular rhythm, Present heart sounds normal, Present capillary refill normal, Present normal rate GASTROINTESTINAL Abdominal: Present soft, Present nontender, Present bowel sounds normal GENITOURINARY Genitourinary: Present exam deferred SKIN Skin: Present warm, Present dry MUSCULOSKELETAL Musculoskeletal: Present ROM normal NEUROLOGICAL Neurological: Present alert, Present oriented x 3, Present no gross motor or sensory deficits, Present other (mild tremor left hand/forearm) PSYCHOLOGICAL Psychological: Present mood/affect normal, Present judgement normal Assessment & Plan Medical Decision Making MDM anxious after smoking weed/Claire - will give IVF's, BHUPINDER Daily with safe ride Reassessment Reassessment counseled on not using drugs, F/U PCP/psych at [facility] tomorrow, [facility]UPINDER with safe ride Assessment & Plan Final Impression: (1) Drug abuse Depart Disposition: HOME, SELF-CARE Last Vital Signs Date Time Temp Pulse Resp B/P (MAP) Pulse Ox O2 Delivery O2 Flow Rate FiO2 01/23/20 15:48 98.9 87 19 103/64 98 Room Air Medications in the ED Ondansetron HCl 4 mg ONCE STAT IV ; Start 01/23/20 at 15:58; Stop 01/23/20 at 15:59; Status UNV Sodium Chloride 1,000 ml @ 0 mls/hr Q0M STAT IV ; Start 01/23/20 at 15:58; Stop 01/23/20 at 15:59; Status DC Lorazepam 1 mg ONCE ONCE IV ; Start 01/23/20 at 16:00; Stop 01/23/20 at 16:01; Status UNV QUINN CHANDLER MD Jan 23, 2020 16:20
== END 2020-01-23 17:00 | disposition home or self-care (01) ==
LOC: ER 16:02
DX: F12.10 Cannabis abuse, uncomplicated (principal); F41.9 Anxiety disorder, unspecified; F17.210 Nicotine dependence, cigarettes, uncomplicated
CPT/HCPCS: 93005; 99284; J2060; J2405; J7030